=== PATIENT | female | born 1945 | race Caucasian/White ===

== ENCOUNTER 2023-02-16 12:40 | Outpatient (CLI) | payer MEDICARE, OTHER | END 2023-02-16 12:41 | disposition home or self-care (01) | LOC: CSHMAMMO 12:40 | PROVIDERS: ATTEND Obstetrics & Gynecology | DX: Z12.31 Encounter for screening mammogram for malignant neoplasm of breast (principal) | CPT/HCPCS: 77063; 77067 ==

== ENCOUNTER 2023-07-08 12:33 | Outpatient (CLI) | payer MEDICARE, OTHER | END 2023-07-08 12:34 | disposition home or self-care (01) | LOC: CSHMRI 12:33 | PROVIDERS: ATTEND Anesthesiology Pain Medicine | DX: M47.26 Other spondylosis with radiculopathy, lumbar region (principal); M16.0 Bilateral primary osteoarthritis of hip | CPT/HCPCS: 72148 ==